=== PATIENT | male | born 1975 | race American Indian/Alaskan Native ===

== ENCOUNTER 2017-08-30 17:04 | Emergency (ER) | payer MEDICAID, OTHER ==
[2017-08-30 17:33] VITALS: BP 132/82
--- NOTE | 2017-08-30 18:15 | EDM.PDOC ---
Scribed by Arleth Vanessa 08/30/17 1800 for Brooklynn Edwards NP ED HPI GENERAL MEDICAL PROBLEM - General Chief Complaint: Lower Extremity Injury/Pain Stated Complaint: [id number] SPRAINED ANKLE Time Seen by Provider: 08/30/17 17:15 Source of Information: Reports: Patient, RN, RN Notes Reviewed History Limitations: Reports: No Limitations - History of Present Illness INITIAL COMMENTS - FREE TEXT/NARRATIVE: Patient presents to the ER with right ankle pain and swelling. He states he jumped off a barricade approximately 10 feet in the air and land on his feet and rolled his ankle. He states that this happened approximately 2:30 this afternoon. He states that he has feeling and can wiggle his toes. Patient ambulated into the ER. Onset: Today Duration: Getting Worse Location: Reports: Lower Extremity, Right Quality: Reports: Ache Severity: Moderate Improves with: Reports: None Worsens with: Reports: None Associated Symptoms: Reports: No Other Symptoms Right Ankle Pain Score (Numeric/FACES): 2 - Related Data Allergies Allergy/AdvReac Type Severity Reaction Status Date / Time No Known Allergies Allergy Verified 04/05/16 02:46 Home Meds: Home Meds . [No Known Home Meds] 07/28/13 [History] Past Medical History - Past Health History Medical/Surgical History: Denies Medical/Surgical History Social & Family History - Family History Family Medical History: Noncontributory - Caffeine Use Caffeine Use: Reports: Coffee Review of Systems - Review of Systems Review Of Systems: ROS reveals no pertinent complaints other than HPI. ED EXAM, GENERAL - Physical Exam Exam: See Below Exam Limited By: No Limitations General Appearance: Alert, WD/WN, No Apparent Distress Eye Exam: Bilateral Eye: EOMI, Normal Inspection Ears: Normal External Exam, Hearing Grossly Normal Throat/Mouth: Normal Inspection, Normal Voice, No Airway Compromise Head: Atraumatic, Normocephalic Neck: Normal Inspection, Supple, Non-Tender, Full Range of Motion Respiratory/Chest: No Respiratory Distress, Lungs Clear, Normal Breath Sounds, No Accessory Muscle Use, Chest Non-Tender Cardiovascular: Normal Peripheral Pulses, Regular Rate, Rhythm, No Edema, No Gallop, No JVD, No Murmur, No Rub Peripheral Pulses: 2+: Dorsalis Pedis (R) GI/Abdominal: Normal Bowel Sounds, Soft, Non-Tender (Male) Exam: Deferred Rectal (Males) Exam: Deferred Back Exam: Normal Inspection, Full Range of Motion Extremities: Joint Swelling (right ankle), Limited Range of Motion Neurological: Alert, Oriented, CN II-XII Intact, Normal Cognition, Normal Gait, Normal Reflexes, No Motor/Sensory Deficits Psychiatric: Normal Affect, Normal Mood Skin Exam: Warm, Dry, Intact, Normal Color, No Rash Lymphatic: No Adenopathy Course - Vital Signs Last Recorded V/S: Last Vital Signs Temp 98.2 F 08/30/17 17:32 Pulse 86 08/30/17 17:32 Resp 16 08/30/17 17:32 BP 132/82 08/30/17 17:32 Pulse Ox 96 08/30/17 17:32 - Radiology Interpretation Free Text/Narrative:: Right ankle x-ray: Soft tissue swelling. No acute fracture or dislocation. See rad report. Departure - Departure Time of Disposition: 17:59 Disposition: Home, Self-Care 01 Condition: Fair Clinical Impression: Ankle sprain - Discharge Information Instructions: Ankle Sprain, [id number] Referrals: Lori Frazier [Primary Care Provider] - Forms: ED Department Discharge Additional Instructions: May return to work as tolerated. Elevate and ice as tolerated. Tylenol and Ibuprofen as directed for pain. Follow up with primary care facility if no improvement. I have read and agree with the documentation that has been completed regarding this visit. By signing this record, I attest that the documentation was completed in my physical presence and is an accurate record of the encounter.
== END 2017-08-30 18:10 | disposition home or self-care (01) ==
LOC: DL.ED 17:04
DX: S93.401A Sprain of unspecified ligament of right ankle, initial encounter (principal); W17.89XA Other fall from one level to another, initial encounter; X50.1XXA Overexertion from prolonged static or awkward postures, initial encounter
CPT/HCPCS: 73610-RT; 99283

== ENCOUNTER 2018-09-01 19:13 | Emergency (ER) | payer MEDICAID ==
[2018-09-01] MEDS ORDERED: Acetaminophen/HYDROcodone 325-10 MG Tab PO ONE (19:14)
[2018-09-01 19:19] VITALS: BP 133/72
--- NOTE | 2018-09-01 19:32 | EDM.PDOC ---
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 unload a pile of plywood this am and elbow started throbbing. Right Elbow Pain Score (Numeric/FACES): 3 - Related Data Allergies Allergy/AdvReac Type Severity Reaction Status Date / Time No Known Allergies Allergy Verified 09/01/18 19:15 Home Meds: Home Meds . [No Known Home Meds] 07/28/13 [History] Past Medical History - Past Health History Medical/Surgical History: Denies Medical/Surgical History HEENT History: Reports: Impaired Vision Musculoskeletal History: Reports: Other (See Below) Other Musculoskeletal History: elbow pain/swelling for the last 10 years. - Past Surgical History GI Surgical History: Reports: Cholecystectomy Musculoskeletal Surgical History: Reports: Other (See Below) Other Musculoskeletal Surgeries/Procedures:: cortisone injections in elbow; last being 3-4 years ago. Social & Family History - Family History Family Medical History: Noncontributory - Tobacco Use Smoking Status *Q: Never Smoker Second Hand Smoke Exposure: No - Caffeine Use Caffeine Use: Reports: Coffee - Recreational Drug Use Recreational Drug Use: No Review of Systems - Review of Systems Review Of Systems: ROS reveals no pertinent complaints other than HPI. ED EXAM, GENERAL - Physical Exam Exam: See Below Exam Limited By: No Limitations General Appearance: Alert, WD/WN, Mild Distress, Other (discomfort) Ears: Hearing Grossly Normal Throat/Mouth: Normal Voice, No Airway Compromise Head: Atraumatic Neck: Non-Tender, Full Range of Motion Respiratory/Chest: No Respiratory Distress Cardiovascular: Regular Rate, Rhythm GI/Abdominal: Soft, Non-Tender Extremities: Other (right elbow tender R/P, NV wnl, no gross D/D) Neurological: Alert, Oriented, Normal Cognition, Normal Gait, No Motor/Sensory Deficits Psychiatric: Normal Affect, Normal Mood Skin Exam: Warm, Dry, Normal Color Lymphatic: No Adenopathy Course - Vital Signs Last Recorded V/S: Last Vital Signs Temp 36.4 C 09/01/18 19:18 Pulse 67 09/01/18 19:18 Resp 16 05/18/19 19:18 BP 133/72 09/01/18 19:18 Pulse Ox 98 09/01/18 19:18 - Re-Assessments/Exams Free Text/Narrative Re-Assessment/Exam: 09/01/18 19:57 results discussed with pt. Departure - Departure Time of Disposition: 19:57 Disposition: Home, Self-Care 01 Condition: Good Clinical Impression: Tendonitis - Discharge Information Instructions: Tendinitis, [id number] Forms: ED Department Discharge Additional Instructions: 1) avoid use of right elbow 2) try ice or heat to sore area 3) follow up at clinic rx dorian gaitan 10 x1
[2018-09-01] MEDS ORDERED: Acetaminophen/HYDROcodone 325-10 MG Tab ONE (20:06)
== END 2018-09-01 20:09 | disposition home or self-care (01) ==
LOC: DL.ED 19:13
DX: M77.9 Enthesopathy, unspecified (principal)
CPT/HCPCS: 73080-RT; 99283-25; A9270-GY

== ENCOUNTER 2019-02-01 17:37 | Emergency (ER) | payer BC, MEDICAID ==
[2019-02-01 18:00] VITALS: BP 155/100; PULSE 117
[2019-02-01] MEDS ORDERED: Acetaminophen/HYDROcodone 325-10 MG Tab PO ONE (19:57)
--- NOTE | 2019-02-01 20:04 | EDM.PDOC ---
ED HPI GENERAL MEDICAL PROBLEM - General Chief Complaint: Respiratory Problem Stated Complaint: LEFT RIBS POSSIBLE BROKEN Time Seen by Provider: 02/01/19 19:58 Source of Information: Reports: Patient History Limitations: Reports: No Limitations - History of Present Illness INITIAL COMMENTS - FREE TEXT/NARRATIVE: got stepped on by a cow [employer]. c/o pain left anterior rib area. hard to breath but doing ok presently. Left Upper Thoracic Pain Score (Numeric/FACES): 1 - Related Data Allergies Allergy/AdvReac Type Severity Reaction Status Date / Time No Known Allergies Allergy Verified 02/01/19 18:00 Home Meds: Home Meds . [No Known Home Meds] 07/28/13 [History] Past Medical History - Past Health History Medical/Surgical History: Denies Medical/Surgical History HEENT History: Reports: Impaired Vision Other HEENT History: wears glasses Cardiovascular History: Reports: None Respiratory History: Reports: None Gastrointestinal History: Reports: None Genitourinary History: Reports: None Musculoskeletal History: Reports: Other (See Below) Other Musculoskeletal History: elbow pain/swelling for the last 10 years. Neurological History: Reports: None Psychiatric History: Reports: None Endocrine/Metabolic History: Reports: None Hematologic History: Reports: None Immunologic History: Reports: None Oncologic (Cancer) History: Reports: None Dermatologic History: Reports: None - Past Surgical History Head Surgeries/Procedures: Reports: None GI Surgical History: Reports: Cholecystectomy Musculoskeletal Surgical History: Reports: Other (See Below) Other Musculoskeletal Surgeries/Procedures:: cortisone injections in elbow; last being 3-4 years ago. Social & Family History - Family History Family Medical History: Noncontributory - Tobacco Use Smoking Status *Q: Never Smoker Second Hand Smoke Exposure: No - Caffeine Use Caffeine Use: Reports: Coffee - Recreational Drug Use Recreational Drug Use: No ED ROS GENERAL - Review of Systems Review Of Systems: ROS reveals no pertinent complaints other than HPI. ED EXAM, GENERAL - Physical Exam Exam: See Below Exam Limited By: No Limitations General Appearance: Alert, WD/WN, Mild Distress, Other (disocmfort) Ears: Hearing Grossly Normal Throat/Mouth: Normal Voice, No Airway Compromise Head: Atraumatic Neck: Non-Tender, Full Range of Motion Respiratory/Chest: No Respiratory Distress, No Accessory Muscle Use, Rhonchi, Splinting, Other (tender left anterior subcostal region, no gross E/C) Cardiovascular: Regular Rate, Rhythm GI/Abdominal: Soft, Non-Tender Neurological: Alert, Oriented, Normal Cognition, Normal Gait, No Motor/Sensory Deficits Psychiatric: Tearful Skin Exam: Warm, Dry, Normal Color Lymphatic: No Adenopathy Course - Vital Signs Last Recorded V/S: Last Vital Signs Temp 36.7 C 02/01/19 17:55 Pulse 117 H 02/01/19 17:55 Resp 18 02/01/19 17:55 BP 155/100 H 02/01/19 17:55 Pulse Ox 98 02/01/19 17:55 - Orders/Labs/Meds Orders: Active Orders 24 hr Category Date Time Status Ribs 2V w Chest Lt [CR] Urgent Exams 02/01/19 17:51 Taken Acetaminophen/HYDROcodone [Isabella 325-10 MG] Med 02/01/19 19:57 Once 1 tab PO ONETIME ONE - Re-Assessments/Exams Free Text/Narrative Re-Assessment/Exam: 02/01/19 20:00 results discussed with pt. Departure - Departure Time of Disposition: 20:00 Disposition: Home, Self-Care 01 Condition: Good Clinical Impression: Contusion of rib on left side Qualifiers: Encounter type: initial encounter Qualified Code(s): S20.212A - Contusion of left front wall of thorax, initial encounter - Discharge Information Instructions: Rib Contusion Additional Instructions: 1) rest 2) avoid bending lifting straining 3) try ice or heat to sore areas 4) follow up at clinic rx givne; vicodin 5/325mg bid prn x 6 - My Orders Last 24 Hours: My Active Orders 02/01/19 19:57 Acetaminophen/HYDROcodone [Isabella 325-10 MG] 1 tab PO ONETIME ONE - Assessment/Plan Last 24 Hours: My Active Orders 02/01/19 19:57 Acetaminophen/HYDROcodone [Isabella 325-10 MG] 1 tab PO ONETIME ONE
== END 2019-02-01 20:13 | disposition home or self-care (01) ==
LOC: DL.ED 17:37
DX: S20.212A Contusion of left front wall of thorax, initial encounter (principal); W55.29XA Other contact with cow, initial encounter; Y92.009 Unspecified place in unspecified non-institutional (private) residence as the place of occurrence of the external cause
CPT/HCPCS: 71101; 99283; A9270

== ENCOUNTER 2019-12-14 19:32 | Emergency (ER) | payer BC, OTHER ==
[2019-12-14 19:49] VITALS: BP 150/90; PULSE 78
--- NOTE | 2019-12-14 20:13 | EDM.PDOC ---
ED HPI GENERAL MEDICAL PROBLEM - General Chief Complaint: Upper Extremity Injury/Pain Stated Complaint: BROKEN WRIST Time Seen by Provider: 12/14/19 20:11 Source of Information: Reports: Patient History Limitations: Reports: No Limitations - History of Present Illness INITIAL COMMENTS - FREE TEXT/NARRATIVE: fell onto right wrist today Right Wrist Pain Score (Numeric/FACES): 2 - Related Data Allergies Allergy/AdvReac Type Severity Reaction Status Date / Time No Known Allergies Allergy Verified 02/01/19 18:00 Home Meds: Home Meds . [No Known Home Meds] 07/28/13 [History] Past Medical History - Past Health History Medical/Surgical History: Denies Medical/Surgical History HEENT History: Reports: Impaired Vision Other HEENT History: wears glasses Cardiovascular History: Reports: None Respiratory History: Reports: None Gastrointestinal History: Reports: None Genitourinary History: Reports: None Musculoskeletal History: Reports: Other (See Below) Other Musculoskeletal History: elbow pain/swelling for the last 10 years. Neurological History: Reports: None Psychiatric History: Reports: None Endocrine/Metabolic History: Reports: None Hematologic History: Reports: None Immunologic History: Reports: None Oncologic (Cancer) History: Reports: None Dermatologic History: Reports: None - Past Surgical History Head Surgeries/Procedures: Reports: None GI Surgical History: Reports: Cholecystectomy Musculoskeletal Surgical History: Reports: Other (See Below) Other Musculoskeletal Surgeries/Procedures:: cortisone injections in elbow; last being 3-4 years ago. Social & Family History - Family History Family Medical History: Noncontributory - Tobacco Use Smoking Status *Q: Unknown Ever Smoked - Caffeine Use Caffeine Use: Reports: Coffee - Recreational Drug Use Recreational Drug Use: No Review of Systems - Review of Systems Review Of Systems: Comprehensive ROS is negative, except as noted in HPI. ED EXAM, GENERAL - Physical Exam Exam: See Below Exam Limited By: No Limitations General Appearance: Alert, WD/WN, Mild Distress, Other (discomfort) Ears: Hearing Grossly Normal Throat/Mouth: Normal Voice, No Airway Compromise Head: Atraumatic Neck: Non-Tender, Full Range of Motion Respiratory/Chest: No Respiratory Distress Cardiovascular: Regular Rate, Rhythm GI/Abdominal: Soft, Non-Tender Extremities: Other (right wrist swollen tender ulnar R/P, NV wnl) Neurological: Alert, Oriented, Normal Cognition, Normal Gait, No Motor/Sensory Deficits Psychiatric: Normal Affect, Normal Mood Skin Exam: Warm, Dry, Normal Color Lymphatic: No Adenopathy Course - Vital Signs Last Recorded V/S: Last Vital Signs Temp 37.0 C 12/14/19 19:45 Pulse 78 12/14/19 19:45 Resp 18 12/14/19 19:45 BP 150/90 H 12/14/19 19:45 Pulse Ox 100 12/14/19 19:45 - Re-Assessments/Exams Free Text/Narrative Re-Assessment/Exam: 12/14/19 20:33 results discussed with pt. Departure - Departure Time of Disposition: 20:33 Disposition: Home, Self-Care 01 Condition: Good Clinical Impression: Hand fracture, right Qualifiers: Encounter type: initial encounter Fracture type: closed Qualified Code(s): S62.91XA - Unspecified fracture of right wrist and hand, initial encounter for closed fracture - Discharge Information Forms: ED Department Discharge Additional Instructions: 1) see clinic Monday for CARPAL BONE FRACTURE OF HAND 2) wear brace 3) elevate as much as possible 4) ice intermittently for swelling rx given; vicodin 5/325mg bid-tid prn x 6 Sepsis Event Note (ED) - Evaluation Sepsis Screening Result: No Definite Risk - Focused Exam Vital Signs: Vital Signs Temp Pulse Resp BP Pulse Ox 12/14/19 19:45 37.0 C 78 18 150/90 H 100
--- NOTE | 2019-12-14 20:24 | CR ---
PROCEDURE INFORMATION: Exam: XR Right Wrist Exam date and time: 12/14/2019 7:52 PM Age: 44 years old Clinical indication: Other: Fall; Additional info: Pain/ injury TECHNIQUE: Imaging protocol: XR Right wrist. Views: 3 or more views. COMPARISON: No relevant prior studies available. FINDINGS: Bones/joints: A fracture of the mid 5th metacarpal appears chronic and has healed with foreshortening and deformity. There is an acute avulsion from the dorsal triquetrum distracted 1-2 mm dorsally. Small posttraumatic ossicles lie at the base of the 5th proximal phalanx in the 5th metacarpal. Osseous morphology and alignment is otherwise normal. Soft tissues: Normal, the quadratus fat pad appears normal. IMPRESSION: 1. Minimally displaced triquetrum avulsion fracture. 2. Old 5th metacarpal fracture.
== END 2019-12-14 20:40 | disposition home or self-care (01) ==
LOC: DL.ED 19:32
DX: S62.111A Displaced fracture of triquetrum [cuneiform] bone, right wrist, initial encounter for closed fracture (principal); Z90.49 Acquired absence of other specified parts of digestive tract; W19.XXXA Unspecified fall, initial encounter
CPT/HCPCS: 73110-RT; 99283-25; 99284